=== PATIENT | male | born 1995 | race Hispanic/Latino ===

== ENCOUNTER 2021-01-26 10:00 | Emergency (ER) | payer BC ==
--- NOTE | 2021-01-26 11:01 | RAD REPORT ---
EXAM DESCRIPTION: RAD - Foot Right 3 View - 01/26/2021 10:53 am CLINICAL HISTORY: Right foot pain status post injury FINDINGS: No fracture or dislocation is seen
--- NOTE | 2021-01-26 11:19 | ER ---
Nurse's Notes [facility] Name: Esdras Saenz Jr Age: 25 yrs Sex: Male : 1995 Arrival Date: 01/26/2021 Time: 10:01 Bed 16 Private MD: Diagnosis: Contusion of right foot Presentation: 01/26 10:11 Chief complaint: Patient states: Pt presents from home ambulatory with mother. Pt iw stated , "I was breaking up a dog fight and trying to kick the other dog off my dog. I went to kick the dog and missed and hit the table behind her with the top of my right foot". No skin break noted, positive pulses. Swelling noted. Coronavirus screen: Client denies travel out of the [place] in the last 14 days. Ebola Screen: Patient negative for fever greater than or equal to 101.5 degrees Fahrenheit, and additional compatible Ebola Virus Disease symptoms Patient denies exposure to infectious person. Patient denies travel to an Ebola-affected area in the 21 days before illness onset. Initial Sepsis Screen: Does the patient meet any 2 criteria? No. Patient's initial sepsis screen is negative. Does the patient have a suspected source of infection? No. Patient's initial sepsis screen is negative. Risk Assessment: Do you want to hurt yourself or someone else? Patient reports no desire to harm self or others. Onset of symptoms was January 25, 2021 at 19:30. 10:11 Method Of Arrival: Ambulatory iw 10:11 Acuity: DAVE 4 iw Triage Assessment: 10:15 General: Appears in no apparent distress. Behavior is calm, cooperative, appropriate iw for age, quiet. Pain: Complains of pain in right foot. Historical: - Allergies: 10:15 No Known Allergies; iw - PSHx: 10:15 Left knee Meniscus; iw - Immunization history:: Adult Immunizations not up to date, Client reports having NOT received the Covid vaccine. - Social history:: Smoking status: Patient denies any tobacco usage or history of. Patient uses alcohol, occasionally. street drugs, marijuana. Screenin:48 Abuse screen: Denies threats or abuse. Denies injuries from another. Nutritional tr6 screening: No deficits noted. Tuberculosis screening: No symptoms or risk factors identified. Fall Risk None identified. Assessment: 10:48 General: Appears in no apparent distress. comfortable, Behavior is calm, cooperative, tr6 appropriate for age. Pain: Complains of pain in right foot. Neuro: No deficits noted. Cardiovascular: No deficits noted. Respiratory: No deficits noted. GI: No deficits noted. : No deficits noted. EENT: No deficits noted. Derm: No deficits noted. Musculoskeletal: No deficits noted. Vital Signs: 10:11 BP 115 / 94; Pulse 72; Resp 18; Temp 98.2; Pulse Ox 98% on R/A; Height 5 ft. 9 in. iw (175.26 cm) (R); Pain 910; 10:18 Weight 69.4 kg (M); kg 10:18 Body Mass Index 22.59 (69.40 kg, 175.26 cm) kg ED Course: 10:01 Patient arrived in ED. am2 10:15 Triage completed. iw 10:19 Monet Apple FNP-C is [facility]. kb 10:19 Juaquin Alcazar MD is Attending Physician. kb 10:48 Mounika Christiansen, RN is Primary Nurse. tr6 10:48 No apparent distress. Resting quietly. Awaiting radiology results. tr6 10:48 Patient has correct armband on for positive identification. Bed in low position. Call tr6 light in reach. Side rails up X 1. Pulse ox on. NIBP on. Door closed. Warm blanket given. Diet: Patient given snack. 10:48 No provider procedures requiring assistance completed. Patient did not have IV access tr6 during this emergency room visit. 10:53 Foot Right 3 View In Process Unspecified. EDMS Administered Medications: 11:31 Not Given (Patient Refused): Ibuprofen 600 mg PO once tr6 Outcome: 11:18 Discharge ordered by . kb 11:43 Patient left the ED. tr6 Signatures: Dispatcher [employer] EDMS Monet Apple FNP-C FNP-Ckb Williams, Irene, RN RN iw Asha Lilly am2 Mounika Christiansen, RAJI ALEGRIA tr6 Enid Robert RN RN kg
--- NOTE | 2021-01-26 11:19 | EDPHYS ---
Physician Documentation [facility] Name: Esdras Saenz Jr Age: 25 yrs Sex: Male : 1995 Arrival Date: 01/26/2021 Time: 10:01 Bed 16 Private MD: ED Physician Juaquin Alcazar HPI: 01/26 11:26 This 25 yrs old Male presents to ER via Ambulatory with complaints of Foot kb Pain. 11:27 The patient presents with pain, that is acute. The complaints affect the right foot. kb Context: The problem was sustained at home, resulted from the patient kicking, furniture, the patient can partially bear weight. Onset: The symptoms/episode began/occurred just prior to arrival. Modifying factors: The symptoms are alleviated by nothing, the symptoms are aggravated by weight bearing. Associated signs and symptoms: Pertinent positives: swelling, Pertinent negatives: calf tenderness, fever, nausea, numbness, rash, tingling, vomiting, warmth, weakness. Severity of symptoms: At their worst the symptoms were moderate, in the emergency department the symptoms are unchanged. The patient has not experienced similar symptoms in the past. The patient has not recently seen a physician. Historical: - Allergies: 10:15 No Known Allergies; iw - PSHx: 10:15 Left knee Meniscus; iw - Immunization history:: Adult Immunizations not up to date, Client reports having NOT received the Covid vaccine. - Social history:: Smoking status: Patient denies any tobacco usage or history of. Patient uses alcohol, occasionally. street drugs, marijuana. ROS: 11:25 Constitutional: Negative for fever, chills, and weight loss. kb 11:25 MS/extremity: Positive for contusion, pain, tenderness, of the dorsum of right foot. 11:25 Skin: Positive for swelling, of the dorsum of right foot. 11:25 All other systems are negative. Exam: 11:25 Constitutional: This is a well developed, well nourished patient who is awake, alert, kb and in no acute distress. ENT: Moist Mucous membranes Respiratory: Respirations even and unlabored. No increased work of breathing, no retractions or nasal flaring. MS/ Extremity: Pulses equal, no cyanosis. Neurovascular intact. Full, normal range of motion. Neuro: Awake and alert, GCS 15, oriented to person, place, time, and situation. Moves all extremities. Normal gait. Psych: Awake, alert, with orientation to person, place and time. Behavior, mood, and affect are within normal limits. 11:25 Skin: injury, contusion(s), that are superficial, of the dorsum of right foot. Vital Signs: 10:11 BP 115 / 94; Pulse 72; Resp 18; Temp 98.2; Pulse Ox 98% on R/A; Height 5 ft. 9 in. iw (175.26 cm) (R); Pain 9; 10:18 Weight 69.4 kg (M); kg 10:18 Body Mass Index 22.59 (69.40 kg, 175.26 cm) kg MDM: 10:24 Patient medically screened. kb 11:25 Data reviewed: vital signs, nurses notes. Data interpreted: Pulse oximetry: on room air kb is 98 %. Interpretation: normal. Counseling: I had a detailed discussion with the patient and/or guardian regarding: the historical points, exam findings, and any diagnostic results supporting the discharge/admit diagnosis, radiology results, the need for outpatient follow up, a family practitioner, to return to the emergency department if symptoms worsen or persist or if there are any questions or concerns that arise at home. 01/26 10:50 Order name: Foot Right 3 View; Complete Time: 11:13 EDMS Administered Medications: 11:31 Not Given (Patient Refused): Ibuprofen 600 mg PO once tr6 Disposition: 01/26/21 11:18 Discharged to Home. Impression: Contusion of right foot. - Condition is Stable. - Discharge Instructions: Foot Contusion, [id number]. - Medication Reconciliation Form, Thank You Letter, Antibiotic Education, Prescription Opioid Use form. - Follow up: Emergency Department; When: As needed; Reason: Worsening of condition. Follow up: Private Physician; When: 2 - 3 days; Reason: Recheck today's complaints, Continuance of care, Re-evaluation by your physician. Addendum: 01/29/2021 07:11 Co-signature as Attending Physician, Juaquin Alcazar MD I agree with the assessment and k dr plan of care. Signatures: Dispatcher [employer] EDAZ Monet Apple, HAEVENLY-C FREIGHT AND PASSENGER AGENT-CkJuaquin Chen MD MD [facility] Mary Sneed RN RN iw Mounika Christiansen RN RN tr6 Corrections: (The following items were deleted from the chart) 01/26 10:41 10:20 Foot Right 3 View+RAD.RAD.BRZ ordered. EDAZ EDMS 10:46 10:20 Foot Right 3 View+RAD.RAD.BRZ ordered. EDAZ EDMS 11:43 11:18 01/26/2021 11:18 Discharged to Home. Impression: Contusion of right foot. tr6 Condition is Stable. Forms are Medication Reconciliation Form, Thank You Letter, Antibiotic Education, Prescription Opioid Use. Follow up: Emergency Department; When: As needed; Reason: Worsening of condition. Follow up: Private Physician; When: 2 - 3 days; Reason: Recheck today's complaints, Continuance of care, Re-evaluation by your physician. kb
[2021-01-26 11:50] VITALS: BP 115/94; TEMP 98.2; O2SAT 98
== END 2021-01-26 11:43 | disposition home or self-care (01) ==
LOC: ER 10:00
DX: S90.31XA Contusion of right foot, initial encounter (principal); W22.03XA Walked into furniture, initial encounter
CPT/HCPCS: 99283

== ENCOUNTER 2022-07-04 09:45 | Emergency (ER) | payer BC ==
--- OUTSIDE RECORDS SUMMARY | 2022-07-04 09:48 | XMS REPORT | Continuity of Care Document ---
:1995 Author Organization [facility] t Address [address] [place] [address] Care Team Providers Name Role Phone PCP, PATIENT DOES NOT HAVE A Primary Care Physician Unavaila WILLIAM Gutierrez Attending Clinician Unavailable William Vera DO Attending Clinician Payers Payer Name Policy Type Policy Number Effective Date Expiration Date [id number] 2021 00:00:00 Problems Condition Condition Condition Status Onset Resolution Last Treating Co mments Source Name Details Category Date Date Treatment Clinician Date No known No known Disease Unive rs active active ity of problems problems [facility] Allergies, Adverse Reactions, Alerts Allergy Allergy Status Severity Reaction(s) Onset Inactive Treating Comm ents Source Name Type Date Date Clinician NO KNOWN Drug Active [facility] ALLERGIE Class ity of [facility] Social History Social Habit Start Date Stop Date Quantity Comments Source Exposure to 2022-02-01 2022-02-11 Not sure [facility] SARS-CoV-2 (event) 00:00:00 03:04:00 Medica l Branch Sex Assigned At [birth year] [facility] 00:00:00 00:00:00 [facility] Smoking Status Start Date Stop Date Source Unknown if ever smoked [facility] Medications Ordered Filled Start Stop Current Ordering Indication Dosage Frequency Signature Comments Components Source Medication Medication Date Date Medication? Clinician (SIG) Name Name acetaminoph 1000mg 1,000 mg, Univers en 02-11 Oral, ity of (TYLENOL) 08:10: 08:35 [place]CE, [place] tablet [place] :[place] dose, On Medical 1,000 mg Mon Branch 02/11/22 at 0315, MANFRED chlorphenir Yes [id number] 4mg Take 1 Univers amine 4 mg 6-27 tablet by ity of tablet 00:00: mouth [place] 00 every 6 Medical (six) Branch hours as needed for Allergies or Runny nose. calcium/mag Yes [id number] 1{each} Take 1 Univers nesium/zinc 6-27 Each by ity o f (CALCIUM-MA 00:00: mouth [place] GNESUIUM-ZI 00 daily. Medica l [place]) Branch 333-133-5 mg Tab benzonatate Yes [id number] 100mg Take 1 Univers 100 mg 6-27 capsule by ity of capsule 00:00: mouth 3 [place] 00 (three) Medical times Branch daily as needed for Cough. nirmatrelvi Yes [id number] 3{tbl} Take 3 Univers r-ritonavir 6-27 tablets by it y of (PAXLOVID, 00:00: mouth [place] EUA,) 150 00 (two) Medical mg x 2- 100 times Branch mg tablet daily. vitamin 2021- No [id number] 1{tbl} Take 1 Univers D3-folic 6-27 -28 tablet by ity o f acid 125 00:00: 04:59 mouth [place] mcg (5,000 00 :00 daily for Medi [facility])-1 mg 30 days. Branc h Tab Vital Signs Vital Name Observation Time Observation Value Comments Source Systolic blood 2022-02-11 08:09:40 123 mm[facility]Hg[facility] 2022-02-11 08:09:40 82 mm[Hg] [facility] Heart rate 2022-02-11 08:09:40 87 /min [facility] Respiratory rate 2022-02-11 08:09:40 18 /min [facility] Oxygen saturation in 2022-02-11 08:09:40 98 /min [facility] Arterial blood by [facility] Pulse oximetry Branch Body temperature 2022-02-11 08:06:00 38.39 Joyce [facility] Body height 2022-02-11 08:06:00 175.3 cm [facility] Body weight 2022-02-11 08:06:00 72.576 kg [facility] BMI 2022-02-11 08:06:00 23.63 kg/m2 [facility] Procedures Procedure Date / Time Performed Performing Clinician Sourc e COVID-19 (ID NOW 2022-02-11 08:08:00 William Vera [facility] RAPID TESTING) [facility] NOTICE OF PRIVACY 2022-02-11 07:58:25 Doctor Unassigned, No [facility] PRACTICES Name [facility] CONSENT/REFUSAL FOR 2022-02-11 07:58:06 Doctor Unassigned, No [facility] DIAGNOSIS AND Name [facility] TREATMENT Encounters Start End Encounter Admission Attending Care Care Encounter Source Date/Time Date/Time Type Type Clinicians Facility Department ID 2022-02-11 2022-02-11 Emergency X CHRIS VERA ERT [id number] Univers 03:10:00 03:40:00 WILLIAM villanueva [facility] 2022-02-11 2022-02-11 Emergency CHRIS Vera [id number] Univers 03:10:00 03:40:00 William LE [id number] i ty [facility] [id number] [facility] [id number] [facility] 084 Branch Results This patient has no known results.
[2022-07-04] MEDS ORDERED: IBUPROFEN 200 MG TAB PO ONE (10:06)
[2022-07-04] MEDS ORDERED: IBUPROFEN 400 MG TAB ONE (10:06)
[2022-07-04 11:07] LABS: SARS-COV-2 RT PCR NEGATIVE (NEGATIVE)
--- NOTE | 2022-07-04 11:30 | EDPHYS ---
Physician Documentation [facility] Name: Esdras Saenz Jr Age: 27 yrs Sex: Male : 1995 Arrival Date: 07/04/2022 Time: 09:48 Bed IW1 Private MD: ED Physician Benny Isbell HPI: 07/04 13:37 This 27 yrs old Male presents to ER via Ambulatory with complaints of Flu kb Symptoms. 13:38 The patient or guardian reports cough, that is intermittent, described as mild, flu kb symptoms, low-grade fever. The patient has not recently seen a physician. 13:39 Onset: The symptoms/episode began/occurred 3 day(s) ago. Severity of symptoms: At their kb worst the symptoms were mild, in the emergency department the symptoms are unchanged. Modifying factors: The symptoms are alleviated by nothing, the symptoms are aggravated by nothing. Associated signs and symptoms: Pertinent positives: nausea, rhinorrhea, sore throat. The patient has not experienced similar symptoms in the past. Historical: - Allergies: 10:02 No Known Allergies; kr3 - PSHx: 10:48 Left meniscus repair; kr3 - Immunization history:: Adult Immunizations not up to date. - Social history:: Smoking status: Patient/guardian denies using tobacco, Stopped _ months ago 6. ROS: 13:37 Constitutional: Negative for fever, chills, and weight loss. kb 13:37 ENT: Positive for sinus congestion, sore throat. 13:37 Respiratory: Positive for cough. 13:37 Abdomen/GI: Positive for vomiting. 13:37 Neuro: Positive for headache. 13:37 All other systems are negative. Exam: 13:37 Constitutional: This is a well developed, well nourished patient who is awake, alert, kb and in no acute distress. Head/Face: Normocephalic, atraumatic. ENT: Moist Mucous membranes Cardiovascular: Regular rate and rhythm with a normal S1 and S2. No gallops, murmurs, or rubs. No pulse deficits. Respiratory: Respirations even and unlabored. No increased work of breathing. Talking in full sentences Abdomen/GI: Soft, non-tender. No distention Skin: Warm, dry with normal turgor. Normal color. MS/ Extremity: Pulses equal, no cyanosis. Neurovascular intact. Full, normal range of motion. Neuro: Awake and alert, GCS 15, oriented to person, place, time, and situation. Moves all extremities. Normal gait. Psych: Awake, alert, with orientation to person, place and time. Behavior, mood, and affect are within normal limits. Vital Signs: 09:59 BP 131 / 79; Pulse 88; Resp 18; Temp 101.2; Pulse Ox 100% ; Weight 70.31 kg; Height 5 kr3 ft. 9 in. (175.26 cm); Pain 8/10; 11:36 BP 129 / 77; Pulse 84; Resp 17; Temp 100.0; Pulse Ox 98% on R/A; kr3 09:59 Body Mass Index 22.89 (70.31 kg, 175.26 cm) kr3 MDM: 10:09 Patient medically screened. kb 13:33 Data reviewed: vital signs, nurses notes. Data interpreted: Pulse oximetry: on room air kb is 98 %. Interpretation: normal. Counseling: I had a detailed discussion with the patient and/or guardian regarding: the historical points, exam findings, and any diagnostic results supporting the discharge/admit diagnosis, lab results, the need for outpatient follow up, a family practitioner, to return to the emergency department if symptoms worsen or persist or if there are any questions or concerns that arise at home. 07/04 10:05 Order name: COVID-19/FLU A+B; Complete Time: 11:11 kr3 Administered Medications: 10:08 Drug: Ibuprofen 600 mg Route: PO; kr3 11:38 Follow up: Response: No adverse reaction kr3 Disposition Summary: 07/04/22 11:29 Discharge Ordered Location: Home kb Condition: Stable kb Diagnosis - Influenza due to identified novel influenza A virus kb Followup: kb - With: Emergency Department - When: As needed - Reason: Worsening of condition Followup: kb - With: Private Physician - When: 2 - 3 days - Reason: Recheck today's complaints, Continuance of care, Re-evaluation by your physician Discharge Instructions: - Discharge Summary Sheet kb - Influenza, Adult, Lowa-qy-Unin kb Forms: - Medication Reconciliation Form kb - Thank You Letter kb - Antibiotic Education kb - Prescription Opioid Use kb Prescriptions: - Tamiflu 75 mg Oral Capsule - take 1 tablet by ORAL route every 12 hours for 5 days; 10 tablet; Refills: 0, kb Product Selection Permitted Addendum: 07/06/2022 08:29 Co-signature as Attending Physician, Benny Isbell MD I agree with the assessment and c ross plan of care. Signatures: Dispatcher [employer] Monet Reeves, TACTICAL DEBRIEFER-C TACTICAL DEBRIEFER-CkBenny Ware MD MD cha Reid, Kelley, RN RN kr3 Corrections: (The following items were deleted from the chart) 07/04 10:07 10:02 Social history: Smoking status: 3 kr3 10:48 10:02 PSHx: left minicus repair; kr3 kr3 13:37 13:37 ENT: Positive for sinus congestion, kb kb
--- NOTE | 2022-07-04 11:30 | ER ---
Nurse's Notes [facility] Name: Esdras Saenz Jr Age: 27 yrs Sex: Male : 1995 Arrival Date: 07/04/2022 Time: 09:48 Bed IW1 Private MD: Diagnosis: Influenza due to identified novel influenza A virus Presentation: 07/04 09:59 Chief complaint: Patient states: Friday morning woke up with a headache and nausea, kr3 congestion and sore throat. Symptoms have gotten worse but come and go. Coronavirus screen: Vaccine status: Patient reports being unvaccinated. Client denies travel out of the [place] in the last 14 days. Ebola Screen: Patient denies travel to an Ebola-affected area in the 21 days before illness onset. Initial Sepsis Screen: Does the patient meet any 2 criteria? No. Patient's initial sepsis screen is negative. Does the patient have a suspected source of infection? No. Patient's initial sepsis screen is negative. Risk Assessment: Do you want to hurt yourself or someone else? Patient reports no desire to harm self or others. Onset of symptoms was July 02, 2022. 09:59 Method Of Arrival: Ambulatory kr3 09:59 Acuity: DAVE 4 kr3 Triage Assessment: 10:07 General: Appears in no apparent distress. uncomfortable, Behavior is calm, cooperative, kr3 appropriate for age. Pain: Complains of pain in headache. Historical: - Allergies: 10:02 No Known Allergies; kr3 - PSHx: 10:48 Left meniscus repair; kr3 - Immunization history:: Adult Immunizations not up to date. - Social history:: Smoking status: Patient/guardian denies using tobacco, Stopped _ months ago 6. Screenin:37 Abuse screen: Denies threats or abuse. Nutritional screening: No deficits noted. kr3 Tuberculosis screening: No symptoms or risk factors identified. Fall Risk None identified. Vital Signs: 09:59 BP 131 / 79; Pulse 88; Resp 18; Temp 101.2; Pulse Ox 100% ; Weight 70.31 kg; Height 5 kr3 ft. 9 in. (175.26 cm); Pain 8/10; 11:36 BP 129 / 77; Pulse 84; Resp 17; Temp 100.0; Pulse Ox 98% on R/A; kr3 09:59 Body Mass Index 22.89 (70.31 kg, 175.26 cm) kr3 ED Course: 09:48 Patient arrived in ED. mr 09:51 Monet Apple [facility]NP-C [facility] kb 09:51 Benny Isbell MD is Attending Physician. kb 10:02 Triage completed. kr3 10:07 Arm band placed on left wrist. kr3 11:37 No provider procedures requiring assistance completed. Patient did not have IV access kr3 during this emergency room visit. 11:38 Call light in reach. kr3 Administered Medications: 10:08 Drug: Ibuprofen 600 mg Route: PO; kr3 11:38 Follow up: Response: No adverse reaction kr3 Medication: 11:38 VIS not applicable for this client. kr3 Outcome: 11:29 Discharge ordered by . kb 11:37 Patient left the ED. kr3 11:37 Discharged to home ambulatory. kr3 11:37 Condition: stable 11:37 Discharge instructions given to patient, Instructed on discharge instructions, follow up and referral plans. medication usage, Demonstrated understanding of instructions, follow-up care, medications, Prescriptions given X 1. Signatures: Monet Apple FNP-C FNP-Amber Ruth TravisAngelique, RN RN kr3 Corrections: (The following items were deleted from the chart) 10:07 10:02 Social history: Smoking status: kr3 kr3 10:48 10:02 PSHx: left minicus repair; kr3 kr3
[2022-07-04 11:43] VITALS: BP 129/77; TEMP 100; O2SAT 98
== END 2022-07-04 11:37 | disposition home or self-care (01) ==
LOC: ER 09:45
DX: J09.X2 Influenza due to identified novel influenza A virus with other respiratory manifestations (principal); Z20.822 Contact with and (suspected) exposure to COVID-19
CPT/HCPCS: 0240U; 99283

== ENCOUNTER 2025-05-05 10:31 | Emergency (ER) | payer BC, SELFPAY ==
[2025-05-05 11:58] LABS: Absolute Lymphocytes (CBC) 2.7 K/uL (0.7-4.9); Hematocrit 44.4 % (39.6-49.0); Hemoglobin 15.6 g/dL (13.6-17.9); MCH 31.1 pg (27.0-35.0); MCHC 35.1 g/dL (32.0-36.0); MCV 88.7 fL (80-100); MPV 7.0 fL (7.6-11.3); Nucleated RBC Absolute Count 0.0 (0-0); Nucleated Red Blood Cells % 0.0 % (0-0); RBC Red Blood Cell Count 5.01 M/uL (4.33-5.43); White Blood Count 9.10 thou/uL (4.3-10.9)
[2025-05-05 11:58] LABS: Sqamous Epithelial None Seen /HPF (None Seen); Urine Culture Reflex Order NOT NEEDED; Urine Microscopic Reflex YN ORDER UMIC
[2025-05-05] MEDS ORDERED: ONDANSETRON 4 MG/2 ML VIAL ONE (12:01)
[2025-05-05] MEDS ORDERED: MORPHINE 4 MG/ML SYR ONE (12:01)
[2025-05-05] MEDS ORDERED: NA CHLORIDE 0.9% 1,000 ML ONE (12:02)
[2025-05-05 12:27] LABS: ALT/SGPT 62.0 U/L (16-61); AST/SGOT 27.0 U/L (15-37); Albumin 4.0 g/dL (3.4-5.0); Albumin/Globulin Ratio 0.9 (1.1-1.8); Alkaline Phosphatase 82.0 U/L (45-117); Anion Gap 6.8 mEq/L (5.0-15.0); BUN Blood Urea Nitrogen 9.0 mg/dL (7-18); Globulin 4.3 g/dL (2.3-3.5); Glucose Level 111.0 mg/dL (74-106); Potassium 3.8 mEq/L (3.5-5.1)
[2025-05-05 13:02] LABS: Influenza A Ag Negative; Influenza B Ag Negative; SARS-CoV-2 Antigen Rapid Res Negative (Negative)
[2025-05-05] MEDS ORDERED: ACETAMINOPHEN 500 MG TAB ONE (13:46)
[2025-05-05] MEDS ORDERED: KETOROLAC 30 MG/ML INJ ONE (13:46)
--- NOTE | 2025-05-05 13:59 | EDPHYS ---
Physician Documentation [facility] Name: Esdras Saenz Jr Age: 29 yrs Sex: Male : 1995 Arrival Date: 05/05/2025 Time: 10:31 Bed 13 Private MD: ED Physician Amanda Vu HPI: 05/05 18:14 This 29 yrs old Male presents to ER via Ambulatory with complaints of Headache.dr5 18:14 The patient describes the headache as aching. Onset: The symptoms/episode dr5 began/occurred 5 day(s) ago. Associated signs and symptoms: Pertinent positives: Photophobia. Patient is a 29-year-old male with no Michael history coming in with intermittent headaches for the past 5 days. Patient reports that has been working outside and has been taking ibuprofen and Tylenol with mild relief. Patient denies dysuria, dark urine. Patient reports generalized malaise.. Historical: - Allergies: 11: No Known Allergies; ss - Home Meds: 11: None [Active]; ss - PMHx: 11: None; ss - PSHx: 11:01 Left meniscus repair; ss - Immunization history:: Adult Immunizations not up to date. - Infectious Disease History:: Denies. - Social history:: Smoking status: Patient reports the use of cigarette tobacco products, smokes one-half pack cigarettes per day. ROS: 18:14 Constitutional: as per hpi dr5 Exam: 18:14 Constitutional: This is a well developed, well nourished patient who is awake, alert, dr5 and in no acute distress. Head/Face: Normocephalic, atraumatic. Eyes: Pupils equal round and reactive to light, extra-ocular motions intact. Lids and lashes normal. Conjunctiva and sclera are non-icteric and not injected. Cornea within normal limits. Periorbital areas with no swelling, redness, or edema. Neck: Trachea midline, no thyromegaly or masses palpated, and no cervical lymphadenopathy. Supple, full range of motion without nuchal rigidity, or vertebral point tenderness. No Meningismus. Chest/axilla: Normal chest wall appearance and motion. Nontender with no deformity. No lesions are appreciated. Cardiovascular: Regular rate and rhythm with a normal S1 and S2. Normal PMI, no JVD. No pulse deficits. Respiratory: Lungs have equal breath sounds bilaterally, clear to auscultation. No rales, rhonchi or wheezes noted. No increased work of breathing, no retractions or nasal flaring. Back: No spinal tenderness. No costovertebral tenderness. Full range of motion. Skin: Warm, dry with normal turgor. Normal color with no rashes, no lesions, and no evidence of cellulitis. MS/ Extremity: Pulses equal, no cyanosis. Neurovascular intact. Full, normal range of motion. Neuro: Awake and alert, GCS 15, oriented to person, place, time, and situation. Cranial nerves II-XII grossly intact. Motor strength 5/5 in all extremities. Sensory grossly intact. Cerebellar exam normal. Normal gait. Vital Signs: 10:59 BP 130 / 80; Pulse 67; Resp 14; Temp 98.5(O); Pulse Ox 99% on R/A; Weight 74.84 kg; ss Height 5 ft. 9 in. ; Pain 8/10; 12:20 BP 119 / 85; Pulse 56; Resp 16; Pulse Ox 100% ; ar8 13:00 BP 112 / 79; Pulse 60; Resp 16; Pulse Ox 100% on R/A; Pain 6/10; ar8 14:00 BP 124 / 82; Pulse 58; Resp 18; Pulse Ox 100% on R/A; Pain 4/10; ar8 14:30 BP 128 / 80; Pulse 62; Resp 16 S; Pulse Ox 100% ; ar8 10:59 Body Mass Index 24.37 (74.84 kg, 175.26 cm) ss 10:59 Pain Scale: Adult ss 13:00 Pain Scale: Adult ar8 14:00 Pain Scale: Adult ar8 [place] Coma Score: 18:14 Eye Response: spontaneous(4). Motor Response: obeys commands(6). Verbal Response: dr5 oriented(5). Total: 15. MDM: 10:38 Medical Screening Exam initiated dr5 18:14 Differential diagnosis: Migraine, dehydration, electrolyte abnormality, acute kidney dr5 injury, tension headache. Data reviewed: vital signs, nurses notes, lab test result(s), cardiac enzymes, CPK, CBC, white blood cell count, hemoglobin, hematocrit, platelets, electrolytes, sodium, potassium, chloride, serum bicarbonate, BUN, creatinine, serum glucose, Flu: negative COVID-negative. Consideration of Admission/Observation Escalation of care including admission/observation considered. Escalation considered patient found to have acute kidney injury. I considered the following discharge prescriptions or medication management in the emergency department I discussed and recommended Over The Counter medications, Medications were administered in the Emergency Department. See MAR. Test considered but Not performed: X-ray: X-ray considered but patient denies cough or fever. Historians other than the Patient: Parent: Parent at bedside. Care significantly affected by the following Social Determinants of Health: Poor access to healthcare and/or lack of insurance, Poor access to transportation, Problems related to employment. Scoring Tools HEART Score: History: ECG: Age: Risk Factors: No Risk Factors Known (0), Troponin: Total Score = 0. Counseling: I had a detailed discussion with the patient and/or guardian regarding the historical points, exam findings, and any diagnostic results supporting the discharge/admit diagnosis, the presence of at least one elevated blood pressure reading (>120/80) during this emergency department visit, lab results, the need for outpatient follow up, for definitive care, a family practitioner, to return to the emergency department if symptoms worsen or persist or if there are any questions or concerns that arise at home. Medication response: Toradol relieved patient's pain. The symptoms have resolved. Response to treatment: the patient's symptoms have resolved after treatment, the patient's condition has returned to base line, the patient is now symptom free. Special discussion: I discussed with the patient/guardian in detail that at this point there is no indication for admission to the hospital. It is understood, however, that if the symptoms persist or worsen the patient needs to return immediately for re-evaluation. Based on the history and exam findings, there is no indication for further emergent testing or inpatient evaluation. I discussed with the patient/guardian the need to see the neurologist for further evaluation of the symptoms. I discussed with the patient/guardian the need to see the primary care provider for further evaluation of the symptoms. ED course: Will have patient follow-up with primary care doctor. Patient reports his headache is resolved and he is feeling much better. Patient is actually symptom-free on discharge. All questions answered. Strict ER precautions given. Recommended hydration.. 05/05 11:54 Order name: COVID-19 Ag + Flu A+B Ag; Complete Time: 13:03 EDMS 05/05 11:54 Order name: Comprehensive Metabolic Panel; Complete Time: 12:54 EDMS 05/05 11:54 Order name: Creatine Phosphokinase; Complete Time: 12:54 EDMS 05/05 11:54 Order name: CBC with Automated Diff; Complete Time: 12:54 EDMS 05/05 11:54 Order name: UA Rfx Santosh Cult if indicated; Complete Time: 11:58 EDMS 05/05 11:12 Order name: IV Saline Lock; Complete Time: 11:41 dr5 05/05 11:12 Order name: Labs collected and sent; Complete Time: 11:41 dr5 Administered Medications: 12:23 Drug: NS 0.9% IV 1000 ml IV at 1 bolus Per protocol; to be given as a bolus over 60 ar8 minutes Route: IV; Rate: 1 bolus; Site: left antecubital; 14:00 Follow up: Response: No adverse reaction; Marked relief of symptoms; IV Status: ar8 Completed infusion; IV Intake: 1000ml 12:24 Not Given (Patient Refused): ondansetron 4 mg IVP once; over 2 minutes ar8 12:24 Not Given (Patient Refused): morphineor iv 4 mg IVP once over 4 mins ar8 14:00 Drug: Acetaminophen PO 1000 mg PO once Route: PO; ar8 14:37 Follow up: Response: No adverse reaction; Pain is decreased ar8 14:00 Drug: Ketorolac IVP 15 mg IVP once Route: IVP; Site: left antecubital; ar8 14:36 Follow up: Response: No adverse reaction; Pain is decreased ar8 Disposition Summary: 05/05/25 13:58 Discharge Ordered Notes: Location: Home dr5 Condition: Stable dr5 Diagnosis - Headache dr5 - Dehydration dr5 Followup: dr5 - With: Emergency Department - When: As needed - Reason: Worsening of condition Followup: dr5 - With: Private Physician - When: 1 - 2 days - Reason: Recheck today's complaints, Continuance of care, Re-evaluation by your physician Discharge Instructions: - Discharge Summary Sheet dr5 - Dehydration, Adult dr5 - Migraine Headache dr5 Forms: - Work release form dr5 - Medication Reconciliation Form dr5 - Patient Portal Instructions dr5 - Leadership Thank You Letter dr5 Prescriptions: - Zofran 4 mg Oral Tablet - take 1 tablet ORAL route every 12 hours As needed; 20 tablet; Refills: 0, dr5 Product Selection Permitted Signatures: Dispatcher [employer] EDMaty Sierraby, RN RN ss Tato Castorena, LABORATORY DIRECTOR-C LABORATORY DIRECTOR-Cdr5 Jose Raul Sharif, RN RN ar8 Corrections: (The following items were deleted from the chart) 11:13 COMPREHENSIVE METABOLIC PANEL+C.LAB.BRZ ordered. EDMS EDMS 11:13 CREATINE PHOSPHOKINASE+C.LAB.BRZ ordered. EDMS EDMS 11:03 COVID-19 Ag + Flu A+B Ag+I.LAB.BRZ ordered. EDMS EDMS 11:13 CBC+H.LAB.BRZ ordered. EDMS EDMS 11:13 UA Rfx Santosh Cult if indicated+U.LAB.BRZ ordered. EDMS EDMS
--- NOTE | 2025-05-05 13:59 | ER ---
Nurse's Notes [facility] Name: Esdras Saenz Jr Age: 29 yrs Sex: Male : 1995 Arrival Date: 05/05/2025 Time: 10:31 Bed 13 Private MD: Diagnosis: Headache;Dehydration Presentation: 05/05 10:59 Chief complaint: Patient states: Headache and eye pain that began Friday. Pt reports ss he checked his temperature Friday evening, TMAX 100.0. Pt believes it may be from working out in the heat all day Friday. Also reports mild cough. Coronavirus screen: Client denies travel out of the [place] in the last 14 days. Ebola Screen: Patient denies exposure to infectious person. Patient denies travel to an Ebola-affected area in the 21 days before illness onset. Initial Sepsis Screen: Does the patient meet any 2 criteria? No. Patient's initial sepsis screen is negative. Does the patient have a suspected source of infection? No. Patient's initial sepsis screen is negative. Risk Assessment: Do you want to hurt yourself or someone else? Patient reports no desire to harm self or others. Onset of symptoms was April 30, 2025. 10:59 Method Of Arrival: Ambulatory ss 10:59 Acuity: DAVE 3 ss Historical: - Allergies: 11:01 No Known Allergies; ss - Home Meds: 11:01 None [Active]; ss - PMHx: 11:01 None; ss - PSHx: 11:01 Left meniscus repair; ss - Immunization history:: Adult Immunizations not up to date. - Infectious Disease History:: Denies. - Social history:: Smoking status: Patient reports the use of cigarette tobacco products, smokes one-half pack cigarettes per day. Screenin:20 [facility] ED Fall Risk Assessment (Adult) History of falling in the last 3 months, ar8 including since admission No falls in past 3 months (0 pts) Confusion or Disorientation No (0 pts) Intoxicated or Sedated No (0 pts) Impaired Gait No (0 pts) Mobility Assist Device Used No (0 pt) Altered Elimination No (0 pt) Score/Fall Risk Level 0 - 2 = Low Risk Oriented to surroundings, Maintained a safe environment. Abuse screen: Denies threats or abuse. Nutritional screening: No deficits noted. Tuberculosis screening: No symptoms or risk factors identified. Assessment: 12:20 General: Appears in no apparent distress. Behavior is calm, cooperative. ar8 12:20 Pain: Complains of pain in headache Pain currently is 6 out of 10 on a pain scale. ar8 Neuro: Level of Consciousness is awake, alert, obeys commands, Oriented to person, place, time, situation, Moves all extremities. Full function Gait is steady, Speech is normal, Facial symmetry appears normal. Cardiovascular: Patient's skin is warm and dry. Respiratory: Airway is patent Respiratory effort is even, unlabored, Respiratory pattern is regular, symmetrical. GI:. GI: No signs and/or symptoms were reported involving the gastrointestinal system. : No signs and/or symptoms were reported regarding the genitourinary system. EENT: No signs and/or symptoms were reported regarding the EENT system. Derm: Skin is intact, Skin is dry, Skin is normal, Skin temperature is warm. 13:18 Reassessment: Patient and/or family updated on plan of care and expected duration. Pain ar8 level reassessed. Patient is alert, oriented x 3, equal unlabored respirations, skin warm/dry/pink. Patient states some relief from headache since arrival. 01/25. Patient originally declined pain medication. Readdressed pain level and asked patient if they would like anything for pain. Patient refused pain medication again at this time. Vital Signs: 10:59 BP 130 / 80; Pulse 67; Resp 14; Temp 98.5(O); Pulse Ox 99% on R/A; Weight 74.84 kg; ss Height 5 ft. 9 in. ; Pain 8/10; 12:20 BP 119 / 85; Pulse 56; Resp 16; Pulse Ox 100% ; ar8 13:00 BP 112 / 79; Pulse 60; Resp 16; Pulse Ox 100% on R/A; Pain 6/10; ar8 14:00 BP 124 / 82; Pulse 58; Resp 18; Pulse Ox 100% on R/A; Pain 4/10; ar8 14:30 BP 128 / 80; Pulse 62; Resp 16 S; Pulse Ox 100% ; ar8 10:59 Body Mass Index 24.37 (74.84 kg, 175.26 cm) ss 10:59 Pain Scale: Adult ss 13:00 Pain Scale: Adult ar8 14:00 Pain Scale: Adult ar8 [place] Coma Score: 18:14 Eye Response: spontaneous(4). Motor Response: obeys commands(6). Verbal Response: dr5 oriented(5). Total: 15. ED Course: 10:36 Patient arrived in ED. cj3 10:37 Tato Castorena FNP-C [facility]. dr5 10:37 Amanda Vu MD is Attending Physician. dr5 11:01 Triage completed. ss 11:01 Arm band placed on left wrist. ss 11:41 Initial lab(s) drawn, by me, sent to lab. COVID swab sent to lab. Inserted saline lock: bc6 20 gauge in left antecubital area, using aseptic technique. Blood collected. Flushed with 10 mL NS. 12:08 Jose Raul Sharif, RN is Primary Nurse. ar8 12:20 Bed in low position. Call light in reach. Side rails up X 1. Provided Education on: ar8 plan of care, diagnostics, estimated wait time. 12:20 No provider procedures requiring assistance completed. ar8 14:32 IV discontinued, intact, bleeding controlled, No redness/swelling at site. Pressure ar8 dressing applied. Administered Medications: 12:23 Drug: NS 0.9% IV 1000 ml IV at 1 bolus Per protocol; to be given as a bolus over 60 ar8 minutes Route: IV; Rate: 1 bolus; Site: left antecubital; 14:00 Follow up: Response: No adverse reaction; Marked relief of symptoms; IV Status: ar8 Completed infusion; IV Intake: 1000ml 12:24 Not Given (Patient Refused): ondansetron 4 mg IVP once; over 2 minutes ar8 12:24 Not Given (Patient Refused): morphineor iv 4 mg IVP once over 4 mins ar8 14:00 Drug: Acetaminophen PO 1000 mg PO once Route: PO; ar8 14:37 Follow up: Response: No adverse reaction; Pain is decreased ar8 14:00 Drug: Ketorolac IVP 15 mg IVP once Route: IVP; Site: left antecubital; ar8 14:36 Follow up: Response: No adverse reaction; Pain is decreased ar8 Medication: 12:20 VIS not applicable for this client. ar8 Intake: 14:00 IV: 1000ml; Total: 1000ml. ar8 Outcome: 13:58 Discharge ordered by . dr5 14:38 Discharged to home ambulatory, ar8 14:38 Condition: stable 14:38 Discharge instructions given to patient, family, Instructed on discharge instructions, follow up and referral plans. medication usage, Demonstrated understanding of instructions, follow-up care, medications, Prescriptions given X 1, 14:39 Patient left the ED. ar8 Signatures: Dee Titus, RN RN ss Judith Cedeno bc6 Tato Castorena, FAMILY LIFE COUNSELOR-C FAMILY LIFE COUNSELOR-Cdr5 Luna Cheema cj3 Jose Raul Sharif RN RN ar8 Corrections: (The following items were deleted from the chart) 12:51 11:41 CREATINE PHOSPHOKINASE+C.LAB.BRZ drawn and sent. [facility] EDMS 12:51 11:41 COMPREHENSIVE METABOLIC PANEL+C.LAB.BRZ drawn and sent. [facility] EDMS 12:52 11:41 CBC+H.LAB.BRZ drawn and sent. [facility] EDMS 12:52 11:41 COVID-19 Ag + Flu A+B Ag+I.LAB.BRZ drawn and sent. [facility] EDMS 13:36 13:00 BP 6 / 79; Pulse 60bpm; Resp 16bpm; Pulse Ox 100% RA; Pain 610, Adult; ar8 ar8
[2025-05-05 14:48] VITALS: TEMP 98.5
[2025-05-05 14:50] VITALS: O2SAT 100
[2025-05-05 14:55] VITALS: BP 128/80
== END 2025-05-05 14:39 | disposition home or self-care (01) ==
LOC: ER 10:31
DX: R51.9 Headache, unspecified (principal); E86.0 Dehydration; Z11.52 Encounter for screening for COVID-19
CPT/HCPCS: 36415; 80053; 81001; 82550; 85025; 87428; 96361; 96374; 99284; J2405; J7030